=== PATIENT | male | born 2000 | race Caucasian/White ===

== ENCOUNTER 2024-08-30 22:14 | Emergency (ER) | payer OTHER, SELFPAY ==
--- OUTSIDE RECORDS SUMMARY | 2024-08-30 22:16 | XMS REPORT | Continuity of Care Document ---
Author Name Unknown Address [address] [place] [id number] Organization [facility] Address [address] [place] [address] [address] [place] [address] Care Team Providers Care Health Information Internship Name Role Phone Berny_Rolando Attending Clinician Unavailable Jose Arrieta Attending Clinician [phone] Monik Admitting Clinician Unavailable Payers Payer Name Policy Type Policy Number Effective Date Expirati on Date Source [employer] [id number] 2002 00:00:00 Problems Condition Name Condition Details Condition Category Status Onset Date Resolution Date Last Treatment Date Treating Clinician Comments Source Genital warts Genital Warts Problem Active 8-18 00:00: 00 [facility] Chlamydial urethritis Chlamydial Urethritis Problem Active 8-18 00:00: 00 [facility] Sexually transmitte d infectious disease Sexually Transmitte d Infectious Disease Problem Active 8-18 00:00: 00 [facility] Body mass index 25-29 - overweight Body Mass Index 25-29 - Overweight Problem Active 8-18 00:00: 00 [facility] Social History Smoking Status Start Date Stop Date Source Never Smoker [facility] Medications Ordered Medication Name Filled Medication Name Start Date Stop Date Current Medication? Ordering Clinician Indication Dosage Frequency Signature (SIG) Comments Components Source podofilox 0.5 % topical solution APPLY BY TOPICAL ROUTE 2 TIMES PER DAY FOR 3 DAYS THEN STOP FOR 4 DAYS. (REPEAT 7DAY CYCLE UNTIL NO VISIBLE WART TISSUE/MAX OF FOUR CYCLES) podofilox 0.5 % topical solution APPLY BY TOPICAL ROUTE 2 TIMES PER DAY FOR 3 DAYS THEN STOP FOR 4 DAYS. (REPEAT 7DAY CYCLE UNTIL NO VISIBLE WART TISSUE/MAX OF FOUR CYCLES) No podofilox 0.5 % topical solution APPLY BY TOPICAL ROUTE 2 TIMES PER DAY FOR 3 DAYS THEN STOP FOR 4 DAYS. (REPEAT 7DAY CYCLE UNTIL NO VISIBLE WART TISSUE/MAX OF FOUR CYCLES) [facility] Vital Signs Vital Name Observation Time Observation Value Comments Rolando pantoja Body Weight 2024-07-31 00:00:00 200 [lb_av] [facility] BMI (Body Mass Index) 2024-07-31 00:00:00 25.7 kg/m2 [facility] Height 2024-07-31 00:00:00 74 [in_i] [facility] Height 2024-07-17 00:00:00 74 [in_i] [facility] BMI (Body Mass Index) 2024-07-17 00:00:00 25.7 kg/m2 [facility] Body Weight 2024-07-17 00:00:00 200 [lb_av] [facility] BP Systolic 2024-07-17 00:00:00 141 mm[Hg] [facility] BP Diastolic 2024-07-17 00:00:00 93 mm[Hg] [facility] BP Diastolic 2022-01-27 00:00:00 84 mm[Hg] [facility] Height 2022-01-27 00:00:00 74 [in_i] [facility] BMI (Body Mass Index) 2022-01-27 00:00:00 26.1 kg/m2 [facility] BP Systolic 2022-01-27 00:00:00 133 mm[Hg] [facility] Body Weight 2022-01-27 00:00:00 203.3 [lb_av] [facility] BP Diastolic 2021-12-29 00:00:00 89 mm[Hg] [facility] Height 2021-12-29 00:00:00 74 [in_i] [facility] BMI (Body Mass Index) 2021-12-29 00:00:00 26.1 kg/m2 [facility] BP Systolic 2021-12-29 00:00:00 124 mm[Hg] [facility] Body Weight 2021-12-29 00:00:00 203 [lb_av] [facility] Encounters Start Date/Time End Date/Time Encounter Type Admission Type Attending [facility] Care Department Encounter ID Source 2024-07-31 00:00:00 2024-07-31 00:00:00 Jaswant Gottlieb, FISCAL ACCOUNTING CLERK: [address] [address], [place] [address] , Ph. [facility] - [phone] [id number] [facility] 2024-07-17 00:00:00 2024-07-17 00:00:00 Jaswant Gottlieb, FISCAL ACCOUNTING CLERK: [address] [address], [place] [address] , Ph. [facility] - [phone] [id number] [facility] 2022-01-30 00:00:00 2022-01-30 00:00:00 Outpatient Mehta_S [facility] [id number] [facility] 2022-01-27 00:00:00 2022-01-27 00:00:00 [place] [facility] [place] [id number] [facility] 2022-01-27 00:00:00 2022-01-27 00:00:00 Outpatient Jose Arrieta [facility] [id number] 2022-01-27 00:00:00 2022-01-27 00:00:00 Jose Arrieta MD: [address] [address], [place] [address] , Ph. [facility] - [phone] [id number] [facility] 2022-01-21 00:00:00 2022-01-21 00:00:00 Outpatient Mehta_S [facility] [id number] [facility] 2022-01-02 00:00:00 2022-01-02 00:00:00 Outpatient Mehta_S [facility] [id number] [facility] 2021-12-30 00:00:00 2021-12-30 00:00:00 Outpatient Mehta_S [facility] [id number] [facility] 2021-12-29 00:00:00 2021-12-29 00:00:00 Outpatient Mehta_S [facility] [id number] [facility] 2021-12-29 00:00:00 2021-12-29 00:00:00 Outpatient Jose Arrieta [facility] [id number] 2021-12-29 00:00:00 2021-12-29 00:00:00 Jose Arrieta MD: [address] [address], [place] [address] , [id number] [facility] 2021-12-28 00:00:00 2021-12-28 00:00:00 Outpatient Mehta_S [facility] [id number] [facility] 2021-12-26 00:00:00 2021-12-26 00:00:00 Outpatient Mehta_S [facility] [id number] [facility] Results Test Description Test Time Test Comments Results Result Co mments Source [facility]lamydia [facility]achomatis+Neisseria gonorrhoeae rRNA [Presence] in Urine by [id number] 00:00:00* Test Item Value Reference Range Interpretation Comme nts Chlamydia trachomatis rRNA [Presence] in Urine by MAYRA with probe detection (test code = 45202-1) NOT DETECTED not detected Neisseria gonorrhoeae rRNA [Presence] in Urine by MAYRA with probe detection (test code = 24924-2) NOT DETECTED not detected [facility] 2000 panel - [id number] 00:00:00* Test Item Value Reference Range Interpretation Comme nts Hepatitis A virus IgM Ab [Units/volume] in Serum by Radioimmunoassay (DON) (test code = 5182-1) NON-REACTIVE non-reactive Hepatitis B virus core IgM A b [Presence] in Serum or Plasma by Immunoassay (test code = 09650-7) NON-REACTIVE non-reactive Hepatitis B virus surface Ag [Presence] in Serum (test code = 5195-3) NON-REACTIVE non-reactive Hepatitis C virus Ab [Presen ce] in Serum or Plasma by Immunoassay (test code = 60915-5) NON-REACTIVE non-reactive [facility] Ab, [id number] 00:00:00* Test Item Value Reference Range Interpretation Comme nts HIV 1 p24 Ag [Presence] in S laura or Plasma by Immunoassay (test code = 06855-6) NON-REACTIVE non-reactive HIV 1+2 Ab [Presence] in Ser um or Plasma by Immunoassay (test code = 88840-3) NON-REACTIVE non-reactive HIV 1+2 Ab+HIV1 p24 Ag [Presence] in Serum or Plasma by Immunoassay (test code = 20981-5) NON-REACTIVE non-reactive [facility] macro (dipstick) panel - [id number] 16:04:00* Test Item Value Reference Range Interpretation Comme nts leukocytes (test code = leukocytes) negative neg urobilinogen (test code = urobilinogen) 0.2 E.U./dL sm amt (.5-1mg/dL) protein (test code = protein) negative See_Comment [Automated [employer] ge] The system which generated this result transmitted reference range: <=150 mg/d. The reference range was not used to interpret this result as normal/abnormal. pH (test code = pH) 7.0 4.5-8 blood (test code = blood) negative See_Comment [Automated [employer] ge] The system which generated this result transmitted reference range: <=3 RBC. The reference range was not used to interpret this result as normal/abnormal. specific gravity (test code = specific gravity) 1.015 1.005-1.025 ketone (test code = ketone) negative none bilirubin (test code = bilirubin) negative neg glucose (test code = glucose) negative See_Comment [Automated [employer] ge] The system which generated this result transmitted reference range: <=130 mg/d. The reference range was not used to interpret this result as normal/abnormal. color (test code = color) not entered yellow clarity (test code = clarity) not entered clear or cloudy nitrite (test code = nitrite) negative neg [facility]
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
--- NOTE | 2024-08-31 00:01 | RAD REPORT ---
EXAM: CT Maxillofacial Without Intravenous Contrast CLINICAL HISTORY: The patient is 24 years old and is Male; left facial contusion TECHNIQUE: Axial computed tomography images of the face without intravenous contrast. Sagittal and coronal r eformatted images were created and reviewed. This CT exam was performed using one or more of the following dose reduction techniques: automated exposure control, adjustment of the mA and/or kV acc ording to patient size, and/or use of iterative reconstruction technique. COMPARISON: No relevant prior studies available. FINDINGS: BONES/JOINTS: The orbital floors and schneider are intact. The zygomatic arches and pterygoid plate s are intact. The maxilla and mandible are intact. There is no acute fracture. SOFT TISSUES: Unremarkable. ORBITS: The globes, extraocular muscles, and optic nerve complexes are within normal limits. SINUSES: Mucoperiosteal thickening of the maxillary sinuses is present. The remaining visualized paranasal sinuses are clear. No air-fluid levels. NASAL CAVITY/SEPTUM: The nasal bones are intact. IMPRESSION: No acute facial fracture. Electronically signed by: Silvia Silva MD 08/30/2024 11:26 PM CDT Due to temporary technical issues with the PACS/[place] reporting system, reports are being briana d by the in-house radiologist without review as a courtesy to ensure prompt reporting the interpreting radiologist is fully responsible for the content of the report. Transcribed Date/Time: 08/31/2024 12:00 AM
[2024-08-31] MEDS ORDERED: TDAP (DIPHTH,PERTUSS(ACELL),TET VAC) 0.5 ML VIAL IMVAC ONE (00:26)
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
[2024-08-31 00:58] VITALS: TEMP 98.7
[2024-08-31 01:01] VITALS: BP 116/64; O2SAT 98
--- NOTE | 2024-08-31 05:46 | RAD REPORT ---
EXAM DESCRIPTION: Shoulder Left 2+ Views , Elbow Left 3 View , Pelvis 1-2 views CLINICAL HISTORY: 24 years Male, pain TECHNIQUE: Single AP view the pelvis, 3 views of the left elbow, and 2 views of the left shoulder wer e obtained. COMPARISON: None available FINDINGS: Pelvis: No acute fracture, dislocation, focal osseous lesion, or radiopaque foreign body. Moderate to large amount of retained colonic stool. Left elbow: No fracture, dislocation, focal osseous lesion, radiopaque foreign body, or joint effusio n. Left shoulder: No fracture, dislocation, focal osseous lesion, or radiopaque foreign body. Acromioclavicular and glenohumeral joints are intact. Visualized pulmonary parenchyma is clear. Cardiac silhouette is normal in size. IMPRESSION: 1. No acute fracture or dislocation. Electronically signed by: Damián Anderson MD 08/30/2024 11:33 PM CDT RP Due to temporary technical issues with the PACS/[employer] reporting system, reports are being briana d by the in-house radiologist without review as a courtesy to ensure prompt reporting the interpreting radiologist is fully responsible for the content of the report. Transcribed Date/Time: 08/31/2024 5:47 AM
--- NOTE | 2024-08-31 05:47 | RAD REPORT ---
EXAM DESCRIPTION: Shoulder Left 2+ Views , Elbow Left 3 View , Pelvis 1-2 views CLINICAL HISTORY: 24 years Male, pain TECHNIQUE: Single AP view the pelvis, 3 views of the left elbow, and 2 views of the left shoulder wer e obtained. COMPARISON: None available FINDINGS: Pelvis: No acute fracture, dislocation, focal osseous lesion, or radiopaque foreign body. Moderate to large amount of retained colonic stool. Left elbow: No fracture, dislocation, focal osseous lesion, radiopaque foreign body, or joint effusio n. Left shoulder: No fracture, dislocation, focal osseous lesion, or radiopaque foreign body. Acromioclavicular and glenohumeral joints are intact. Visualized pulmonary parenchyma is clear. Cardiac silhouette is normal in size. IMPRESSION: 1. No acute fracture or dislocation. Electronically signed by: Damián Anderson MD 08/30/2024 11:33 PM CDT RP Due to temporary technical issues with the PACS/[employer] reporting system, reports are being briana d by the in-house radiologist without review as a courtesy to ensure prompt reporting the interpreting radiologist is fully responsible for the content of the report. Transcribed Date/Time: 08/31/2024 5:46 AM
--- NOTE | 2024-08-31 05:48 | RAD REPORT ---
EXAM DESCRIPTION: Shoulder Left 2+ Views , Elbow Left 3 View , Pelvis 1-2 views CLINICAL HISTORY: 24 years Male, pain TECHNIQUE: Single AP view the pelvis, 3 views of the left elbow, and 2 views of the left shoulder wer e obtained. COMPARISON: None available FINDINGS: Pelvis: No acute fracture, dislocation, focal osseous lesion, or radiopaque foreign body. Moderate to large amount of retained colonic stool. Left elbow: No fracture, dislocation, focal osseous lesion, radiopaque foreign body, or joint effusio n. Left shoulder: No fracture, dislocation, focal osseous lesion, or radiopaque foreign body. Acromioclavicular and glenohumeral joints are intact. Visualized pulmonary parenchyma is clear. Cardiac silhouette is normal in size. IMPRESSION: 1. No acute fracture or dislocation. Electronically signed by: Damián Anderson MD 08/30/2024 11:33 PM CDT RP Due to temporary technical issues with the PACS/[employer] reporting system, reports are being briana d by the in-house radiologist without review as a courtesy to ensure prompt reporting the interpreting radiologist is fully responsible for the content of the report. Transcribed Date/Time: 08/31/2024 5:47 AM
== END 2024-08-31 00:36 | disposition home or self-care (01) ==
LOC: ER 22:14
DX: S00.83XA Contusion of other part of head, initial encounter (principal); S40.012A Contusion of left shoulder, initial encounter; S50.02XA Contusion of left elbow, initial encounter; S70.02XA Contusion of left hip, initial encounter; S30.0XXA Contusion of lower back and pelvis, initial encounter; V86.95XA Unspecified occupant of 3- or 4- wheeled all-terrain vehicle (ATV) injured in nontraffic accident, initial encounter
CPT/HCPCS: 70450; 70486; 72125; 72170; 76377; 90715; 96372; 99284

== ENCOUNTER 2025-02-22 21:20 | Emergency (ER) | payer OTHER ==
--- OUTSIDE RECORDS SUMMARY | 2025-02-22 21:24 | XMS REPORT | Continuity of Care Document ---
Author Name Unknown Address [address] [address] [place] [address] [address] [facility] Address [address] [facility] [address] [place] [address] Care Team Providers Care School Psychometrist Name Role Phone NO PHYSICIAN, . Primary Care Physician Unavailab ZACKARY Jack Attending Clinician Unavailable MeJaeneth Attending Clinician Unavailable Jose Arrieta Attending Clinician [phone] Monik Admitting Clinician Unavailable Payers Payer Name Policy Type Policy Number Effective Date Expirati on Date Source [employer] [id number] 2002 00:00:00 Problems Condition Name Condition Details Condition Category Status Onset Date Resolution Date Last Treatment Date Treating Clinician Comments Source Genital warts Genital Warts Problem Active 12-29 00:00: 00 [facility] Chlamydial urethritis Chlamydial Urethritis Problem Active 12-29 00:00: 00 [facility] Sexually transmitte d infectious disease Sexually Transmitte d Infectious Disease Problem Active 12-29 00:00: 00 [facility] Body mass index 25-29 - overweight Body Mass Index 25-29 - Overweight Problem Active 12-29 00:00: 00 [facility] Social History Smoking Status Start Date Stop Date Source Never Smoker [facility] Medications Ordered Medication Name Filled Medication Name Start Date Stop Date Current Medication? Ordering Clinician Indication Dosage Frequency Signature (SIG) Comments Components Source podofilox 0.5 % topical solution APPLY TOPICALLY TO THE AFFECTED AREA TWICE DAILY FOR 3 DAYS THEN STOP FOR 4 DAYS. REPEAT 7 DAY CYCLE UNTIL NO VISIBLE WART TISSUE /. MAX OF 4 CYCLES podofilox 0.5 % topical solution APPLY TOPICALLY TO THE AFFECTED AREA TWICE DAILY FOR 3 DAYS THEN STOP FOR 4 DAYS. REPEAT 7 DAY CYCLE UNTIL NO VISIBLE WART TISSUE /. MAX OF 4 CYCLES No podofilox 0.5 % topical solution APPLY TOPICALLY TO THE AFFECTED AREA TWICE DAILY FOR 3 DAYS THEN STOP FOR 4 DAYS. REPEAT 7 DAY CYCLE UNTIL NO VISIBLE WART TISSUE /. MAX OF 4 CYCLES [facility] Vital Signs Vital Name Observation Time Observation Value Comments S simran Height 2025-02-22 09:20:00 187.800897 cm [facility] Weight 2025-02-22 09:20:00 92.094014 [facility] BMI (Body Mass Index) 2025-02-22 09:20:00 26.3 kg/m2 [facility] Height 2024-11-03 00:00:00 74 [in_i] [place] [facility] BP Systolic 2024-11-03 00:00:00 142 mm[Hg] [facility] Weight 2024-11-03 00:00:00 200 [lb_av] [facility] Diastolic 2024-11-03 00:00:00 85 mm[Hg] [facility] BMI (Body Mass Index) 2024-11-03 00:00:00 25.7 kg/m2 [facility] Body Weight 2024-07-31 00:00:00 200 [lb_av] [facility] BMI (Body Mass Index) 2024-07-31 00:00:00 25.7 kg/m2 [facility] Height 2024-07-31 00:00:00 74 [in_i] [place] [facility] Body Weight 2024-07-17 00:00:00 200 [lb_av] [facility] BP Systolic 2024-07-17 00:00:00 141 mm[Hg] [place] BP Diastolic 2024-07-17 00:00:00 93 mm[Hg] [facility] Height 2024-07-17 00:00:00 74 [in_i] [facility] BMI (Body Mass Index) 2024-07-17 00:00:00 25.7 kg/m2 [facility] BP Diastolic 2022-01-27 00:00:00 84 mm[Hg] [facility] Height 2022-01-27 00:00:00 74 [in_i] [place] [facility] BMI (Body Mass Index) 2022-01-27 00:00:00 26.1 kg/m2 [facility] BP Systolic 2022-01-27 00:00:00 133 mm[Hg] [place] [place] [facility] Body Weight 2022-01-27 00:00:00 203.3 [lb_av] [place] [facility] BP Diastolic 2021-12-29 00:00:00 89 mm[Hg] [facility] Height 2021-12-29 00:00:00 74 [in_i] [place] [facility] BMI (Body Mass Index) 2021-12-29 00:00:00 26.1 kg/m2 [facility] BP Systolic 2021-12-29 00:00:00 124 mm[Hg] [place] Body Weight 2021-12-29 00:00:00 203 [lb_av] [facility] Encounters Start Date/Time End Date/Time Encounter Type Admission Type Attending Clinicians Care Facility Care Department Encounter ID Source 2025-02-22 07:45:00 2025-02-22 10:05:00 Emergency ER [facility] [id number] [facility] 2025-02-22 07:45:00 2025-02-22 10:05:00 Departed Emergency Room [facility] [id number] 51 [facility] 2024-11-03 00:00:00 2024-11-03 00:00:00 Jaswant Gottlieb, [employer] MACHINE ADJUSTER: [address], [place] [address] , Ph. [facility] - 510 [phone] [id number] [facility] 2024-07-31 00:00:00 2024-07-31 00:00:00 Jaswant Gottlieb, [employer] ASSEMBL[employer] MACHINE ADJUSTER: [address], [place] [address] , Ph. [facility] - 510 [phone] [id number] [facility] 2024-07-17 00:00:00 2024-07-17 00:00:00 Jaswant Gottlibe, [employer] ASSEMBL[employer] MACHINE ADJUSTER: [address], [place] [address] , Ph. [facility] - 510 [phone] [id number] [facility] 2022-01-27 00:00:00 2022-01-27 00:00:00 Outpatient Jose Arrieta [facility] [id number] 2022-01-27 00:00:00 2022-01-27 00:00:00 Jose Arrieta MD: [address] [facility], [place] [address] , Ph. [facility] - 510 [id number] [facility] 2021-12-29 00:00:00 2021-12-29 00:00:00 Outpatient Jose Arrieta [facility] [id number] 2021-12-29 00:00:00 2021-12-29 00:00:00 Jsoe Arrieta MD: [address] [facility] [address], [place] [address] , Ph. [facility] - [phone] [id number] [facility] Results Test Description Test Time Test Comments Results Result Co mments Source [facility]tr[facility]V (mean corpuscular volume) determination 2025-02-22 09:37:00* Test Item Value Reference Range Interpretation Comme [facility] Mean Corpuscular Volume (ashvin t code = 77402-6) 89.5 [facility] CtrMean corpuscular hemoglobin (MCH) determination 2025-02-22 09:37:00* Test Item Value Reference Range Interpretation Comme [facility] Mean Corpuscular Hemoglobin (test code = 49256986) 29.6 [facility]trMean corpuscular hemoglobin concentration (MCHC) ibiqaigallvlc9572-11-77 09:37:00* Test Item Value Reference Range Interpretation Comme [facility] Mean Corpuscular Hemoglobin Concent (test code = 02979350) 33.0 [facility] CtrRBC distribution width coefficient of variation 2025-02-22 09:37:00* Test Item Value Reference Range Interpretation Comme [facility] Red Cell Distribution Width (test code = 88901894) 12.9 [facility] CtrPlatelet [id number] 09:37:00* Test Item Value Reference Range Interpretation Comme [facility] Platelet Count (test code = 47662399) 228 [facility] CtrMean platelet [id number] 09:37:00* Test Item Value Reference Range Interpretation Comme [facility] Mean Platelet Volume (test c ode = 86676269) 10.5 [facility] CtrNeutrophils seg % [id number] 09:37:00* Test Item Value Reference Range Interpretation Comme nts Neutrophils (%) (Auto) (test code = 74303-5) 64.3 [facility] CtrAbsolute immature granulocyte [id number] 09:37:00* Test Item Value Reference Range Interpretation Comme nts Absolute Immature Granulocyt e (auto (test code = 52082-3) 0.01 [facility] CtrBasophil % xoegzd4890-11-97 09:37:00* Test Item Value Reference Range Interpretation Comme nts Basophils (%) (Auto) (test c ode = 65142-8) 0.4 [facility] CtrBlood band neutrophils count (number/volume) 2025-02-22 09:37:00* Test Item Value Reference Range Interpretation Comme nts Neutrophils # (Auto) (test c ode = 76380-3) 3.20 [facility] CtrAbsolute lymphocyte [id number] 09:37:00* Test Item Value Reference Range Interpretation Comme nts Lymphocytes # (Auto) (test c ode = 40275-8) 1.21 [facility] CtrAbsolute basophil shyuz9672-83-03 09:37:00* Test Item Value Reference Range Interpretation Comme nts Basophils # (Auto) (test cod e = 60939437) 0.02 [facility] CtrAbsolute NRBC ybrsr4681-16-74 09:37:00* Test Item Value Reference Range Interpretation Comme nts Nucleated Red Blood Cells # (test code = 633507434) 0 [facility] CtrAbsolute eosinophil [id number] 09:37:00* Test Item Value Reference Range Interpretation Comme nts Eosinophils # (Auto) (test c ode = QQT4548) 0.09 [facility] CtrRBC ostrw0514-46-07 09:37:00* Test Item Value Reference Range Interpretation Comme nts Red Blood Count (test code = 15138706) 4.77 [facility] XwmLsmhhgbqfq2204-68-19 09:37:00* Test Item Value Reference Range Interpretation Comme nts Hematocrit (test code = 85453499) 42.7 [facility] CtrALT (SGPT)2025-02-22 09:36:00* Test Item Value Reference Range Interpretation Comme nts Alanine Aminotransferase (AL T/SGPT) (test code = 04288073) 25 [facility] CtrCreatine kinase total ser/bnln2920-09-84 09:36:00 * Test Item Value Reference Range Interpretation Comme nts Creatine Kinase (test code = 2157-6) 450 [facility] SxqLcujffyqu1929-89-58 09:35:00* Test Item Value Reference Range Interpretation Comme nts Magnesium Level (test code = 16606663) 2.20 [facility] CtrAST (SGOT) ser/bwqb3844-49-34 09:35:00* Test Item Value Reference Range Interpretation Comme nts Aspartate Amino Transf (AST/ SGOT) (test code = 37626319) 26 [facility] CtrOsmolality ppl5210-15-58 09:34:00* Test Item Value Reference Range Interpretation Comme nts Blood Urea Nitrogen (test co de = 469540212) 15 Serum Osmolality (test code = JZS1402) 286 [facility] CtrCreatinine aiqfjdqnyam1193-64-21 09:34:00* Test Item Value Reference Range Interpretation Comme nts Creatinine (test code = YYB9458) 0.87 [facility] CtrEstimated glomerular filtration rate (GFR) tawxyieedphix7796-69-98 09:34:00* Test Item Value Reference Range Interpretation Comme [facility] Glomerular Filtration Rate C alc (test code = 524926088) > 60.00 [facility] CtrBUN/creatinine ewdvd4671-13-10 09:34:00* Test Item Value Reference Range Interpretation Comme nts BUN/Creatinine Ratio (test c ode = 08885983) 17.2 [facility] CtrAlkaline phosphatase etgrr6785-83-08 09:33:00* Test Item Value Reference Range Interpretation Comme nts Total Alkaline Phosphatase ( test code = 35299811) 62 [facility] UvfKR12579-98-10 09:31:00* Test Item Value Reference Range Interpretation Comme nts Carbon Dioxide Level (test c ode = 81647826) 26 [facility] CtrAnion gap fxbkfkdwyqrgp8250-89-67 09:31:00* Test Item Value Reference Range Interpretation Comme nts Anion Gap (test code = 62777978) 12.2 [facility] CtrTotal ivhtiod4504-15-30 09:30:00* Test Item Value Reference Range Interpretation Comme nts Total Protein (test code = MBX9511) 7.1 [facility] CtrGlobulin szs0831-87-43 09:30:00* Test Item Value Reference Range Interpretation Comme nts Globulin (test code = 011713240) 2.4 [facility] CtrAlbumin-globulin ratio oae8263-53-88 09:30:00* Test Item Value Reference Range Interpretation Comme nts Albumin/Globulin Ratio (test code = KUN8947) 2.0 [facility] CtrCalcium rpoxt0035-49-66 09:29:00* Test Item Value Reference Range Interpretation Comme nts Calcium Level (test code = 87128098) 9.2 [facility] CtrAlbumin ser/yrbt8315-24-93 09:29:00* Test Item Value Reference Range Interpretation Comme nts Albumin (test code = 102306598) 4.7 [facility] CtrSodium ysyxl0213-63-66 09:28:00* Test Item Value Reference Range Interpretation Comme nts Sodium Level (test code = ZHA9297) 143 [facility] CtrChloride qlb9532-86-19 09:28:00* Test Item Value Reference Range Interpretation Comme nts Chloride Level (test code = ZFS6522) 109 [facility] CtrReagin Ab [Presence] in Serum by [id number] 00:00:00* Test Item Value Reference Range Interpretation Comme nts Reagin Ab [Titer] in Serum ( test code = 80948-5) NON-REACTIVE non-reactive [facility] UrologyChlamydia trachomatis+Neisseria gonorrhoeae rRNA [Presence] in Urine by Uvbff2471-48-34 00:00:00* Test Item Value Reference Range Interpretation Comme nts Chlamydia trachomatis rRNA [Presence] in Urine by MAYRA with probe detection (test code = 30477-4) NOT DETECTED not detected Neisseria gonorrhoeae rRNA [Presence] in Urine by MAYRA with probe detection (test code = 17733-6) NOT DETECTED not detected [facility]rologyAcute hepatitis 2000 panel - Ctakk7618-02-73 00:00:00* Test Item Value Reference Range Interpretation Comme nts Hepatitis A virus IgM Ab [Units/volume] in Serum by Radioimmunoassay (DON) (test code = 5182-1) NON-REACTIVE non-reactive Hepatitis B virus core IgM A b [Presence] in Serum or Plasma by Immunoassay (test code = 92979-7) NON-REACTIVE non-reactive Hepatitis B virus surface Ag [Presence] in Serum (test code = 5195-3) NON-REACTIVE non-reactive Hepatitis C virus Ab [Presen ce] in Serum or Plasma by Immunoassay (test code = 68030-3) NON-REACTIVE non-reactive [facility] UrologyHIV-1 Ab, [id number] 00:00:00* Test Item Value Reference Range Interpretation Comme nts HIV 1 p24 Ag [Presence] in S laura or Plasma by Immunoassay (test code = 07566-0) NON-REACTIVE non-reactive HIV 1+2 Ab [Presence] in Ser um or Plasma by Immunoassay (test code = 93947-3) NON-REACTIVE non-reactive HIV 1+2 Ab+HIV1 p24 Ag [Presence] in Serum or Plasma by Immunoassay (test code = 69794-7) NON-REACTIVE non-reactive [facility] UrologyUrinalysis macro (dipstick) panel - [id number] 16:04:00* Test Item Value Reference Range Interpretation Comme nts leukocytes (test code = leukocytes) negative neg urobilinogen (test code = urobilinogen) 0.2 E.U./dL sm amt (.5-1mg/dL) protein (test code = protein) negative See_Comment [Automated messa ge] The system which generated this result transmitted reference range: <=150 mg/d. The reference range was not used to interpret this result as normal/abnormal. pH (test code = pH) 7.0 4.5-8 blood (test code = blood) negative See_Comment [Automated messa ge] The system which generated this result transmitted reference range: <=3 RBC. The reference range was not used to interpret this result as normal/abnormal. specific gravity (test code = specific gravity) 1.015 1.005-1.025 ketone (test code = ketone) negative none bilirubin (test code = bilirubin) negative neg glucose (test code = glucose) negative See_Comment [Automated messa ge] The system which generated this result transmitted reference range: <=130 mg/d. The reference range was not used to interpret this result as normal/abnormal. color (test code = color) not entered yellow clarity (test code = clarity) not entered clear or cloudy nitrite (test code = nitrite) negative neg [facility] Notes <thead> Date/Time Note Provider Source [facility] [id number] 10:09:06 [facility] [id number] 10:09:06 You came to the ED today com plaining of paresthesias in the upper and lower extremity. While in the emergency department you had a normal neurologic physical exam and able to ambulate in the ED with no difficulty or abnormal gait. CBC showed no signs of serious infection. Electrolytes came back within normal limits. Blood sugar was unremarkable for serious abnormality. Please follow-up with your primary care doctor for further care and evaluation. Return to the ED if your symptoms worsen or you have any other concerns. Thank you. Future Tests Future scheduled test information is unavailable Pending Tests Pending diagnostic test information is unavailable Future Visits Future appointment information is unavailable Referrals to Other Providers <thead> Reason for Referral Referral Start Date Provider Provider Contact Information Provider Address NO PHYSICIAN Future Procedures Future procedure information is unavailable Future Medications Future medication information is unavailable Patient Instructions <tbody> Paresthesia, Ashm-zk-Ghpp [facility]
[2025-02-22 22:05] LABS: Absolute Lymphocytes (CBC) 2.5 K/uL (0.7-4.9); Hematocrit 42.4 % (39.6-49.0); Hemoglobin 14.1 g/dL (13.6-17.9); MCH 29.6 pg (27.0-35.0); MCHC 33.3 g/dL (32.0-36.0); MCV 89.0 fL (80-100); MPV 9.2 fL (7.6-11.3); Nucleated RBC Absolute Count 0.0 (0-0); Nucleated Red Blood Cells % 0.0 % (0-0); RBC Red Blood Cell Count 4.76 M/uL (4.33-5.43); White Blood Count 7.20 thou/uL (4.3-10.9)
[2025-02-22 22:24] LABS: ALT/SGPT 32.0 U/L (16-61); AST/SGOT 16.0 U/L (15-37); Albumin 3.8 g/dL (3.4-5.0); Albumin/Globulin Ratio 1.4 (1.1-1.8); Alkaline Phosphatase 63.0 U/L (45-117); Anion Gap 8.9 mEq/L (5.0-15.0); BUN Blood Urea Nitrogen 24.0 mg/dL (7-18); Globulin 2.8 g/dL (2.3-3.5); Glucose Level 113.0 mg/dL (74-106); Potassium 3.9 mEq/L (3.5-5.1)
--- NOTE | 2025-02-22 22:25 | RAD REPORT ---
EXAMINATION: TWO VIEW CHEST XR CLINICAL INDICATION: TECHNIQUE: 2 views of the chest was performed. COMPARISON: No prior exam. FINDINGS: The lungs are well inflated and clear. The heart is normal in size. No displaced fractures evident. IMPRESSION: No acute or significant abnormalities.
[2025-02-22] MEDS ORDERED: FOLIC ACID 5 MG/ML VIAL ONE (23:03)
[2025-02-22 23:35] LABS: METHAMPHETAM NEGATIVE (NEGATIVE); THC Cannibis NEGATIVE (NEGATIVE)
[2025-02-22 23:38] LABS: Sqamous Epithelial None Seen /HPF (None Seen); Urine Crystals Unidentified Few /HPF (None Seen)
[2025-02-22 23:40] LABS: Urine Culture Reflex Order NOT NEEDED; Urine Microscopic Reflex YN NO UMIC
--- NOTE | 2025-02-22 23:59 | ER ---
Nurse's Notes [facility] Name: Prashant Richmond Age: 25 yrs Sex: Male : 2000 Arrival Date: 02/22/2025 Time: 21:20 Bed 5 Private MD: Diagnosis: Bradycardia, unspecified;Tobacco abuse counseling;Tobacco use;Paresthesia of skin Presentation: 02/22 21:47 Chief complaint: Patient states: PT C/O NUMBNESS AND TINGLING TO HANDS, FEET AND FACE br2 INTERMITTENT SINCE YESTERDAY. PT DENIES DRUG USAGE BUT HAS BEEN TAKING AG1 SUPPLEMENT FOR 2 WEEKS. PT WENT TO [facility] IN [place] THIS MORNING. Coronavirus screen: Client denies travel out of the [place] in the last 14 days. Ebola Screen: Patient denies exposure to infectious person. Initial Sepsis Screen: Does the patient meet any 2 criteria? No. Patient's initial sepsis screen is negative. Does the patient have a suspected source of infection? No. Patient's initial sepsis screen is negative. Risk Assessment: Do you want to hurt yourself or someone else? Patient reports no desire to harm self or others. Onset of symptoms is unknown. 21:47 Method Of Arrival: Ambulatory br2 21:47 Acuity: JONAS 3 br2 Triage Assessment: 21:48 General: Appears in no apparent distress. comfortable, Behavior is calm, cooperative. br2 Pain: Denies pain. Historical: - Allergies: 21:48 No Known Allergies; br2 - PMHx: 21:48 None; br2 - PSHx: 21:48 None; br2 - Immunization history:: Adult Immunizations not up to date. - Infectious Disease History:: Denies. - Social history:: Smoking status: Reported history of juuling and/or vaping. Patient uses alcohol, occasionally. Patient/guardian denies using street drugs. Screenin:51 [facility] ED Fall Risk Assessment (Adult) History of falling in the last 3 months, bm8 including since admission No falls in past 3 months (0 pts) Confusion or Disorientation No (0 pts) Intoxicated or Sedated No (0 pts) Impaired Gait No (0 pts) Mobility Assist Device Used No (0 pt) Altered Elimination No (0 pt) Score/Fall Risk Level 0 - 2 = Low Risk Oriented to surroundings, Maintained a safe environment, Educated pt \T\ family on fall prevention, incl call for assistance when getting out of bed, Assessed \T\ reinforced patient's understanding of fall precautions, Hourly rounding (assess needs \T\ fall precautionary measures) done, Used ambulatory aids as needed (educated on \T\ assisted with), Used gait belt as appropriate. Abuse screen: Denies threats or abuse. Nutritional screening: No deficits noted. Tuberculosis screening: No symptoms or risk factors identified. Assessment: 21:51 Reassessment: Patient appears in no apparent distress at this time. No changes from bm8 previously documented assessment. Patient and/or family updated on plan of care and expected duration. Pain level reassessed. Patient is alert, oriented x 3, equal unlabored respirations, skin warm/dry/pink. Patient states symptoms have not improved. 23:00 Reassessment: Patient appears in no apparent distress at this time. No changes from vc1 previously documented assessment. Patient and/or family updated on plan of care and expected duration. Pain level reassessed. Patient is alert, oriented x 3, equal unlabored respirations, skin warm/dry/pink. 02/23 00:00 Reassessment: Patient appears in no apparent distress at this time. No changes from vc1 previously documented assessment. Patient and/or family updated on plan of care and expected duration. Pain level reassessed. Patient is alert, oriented x 3, equal unlabored respirations, skin warm/dry/pink. Vital Signs: 02/22 21:47 BP 137 / 88; Pulse 45; Resp 16; Temp 97.1; Pulse Ox 100% ; Weight 92.99 kg; Height 6 br2 ft. 2 in. ; Pain 0/10; 21:57 BP 137 / 88; Pulse 44; Resp 15; Temp 97.1; Pulse Ox 99% ; Pain 0/10; vc1 23:00 BP 114 / 69; Pulse 51; Resp 16; Pulse Ox 95% ; vc1 02/23 00:00 BP 120 / 77; Pulse 44; Resp 14; Pulse Ox 96% ; vc1 00:04 BP 121 / 75 Supine; Pulse 48; bm8 00:06 BP 125 / 79 Sitting; Pulse 45; bm8 00:08 BP 129 / 85 Standing; Pulse 45; bm8 02/22 21:47 Body Mass Index 26.32 (92.99 kg, 187.96 cm) br2 10 21:47 Pain Scale: Adult br2 21:57 Pain Scale: Adult vc1 [place] Coma Score: 02/22 21:51 Eye Response: spontaneous(4). Motor Response: obeys commands(6). Verbal Response: bm8 oriented(5). Total: 15. 22:56 Eye Response: spontaneous(4). Motor Response: obeys commands(6). Verbal Response: sam oriented(5). Total: 15. NIH Stroke Scale Scores: 22:56 NIHSS Score: 0 sam ED Course: 21:22 Patient arrived in ED. im 21:29 Geoffrey Brownlee MD is Attending Physician. sam 21:48 Triage completed. br2 21:48 Arm band placed on right wrist. br2 21:51 Carlo Manzo, RN is Primary Nurse. bm8 21:53 Patient has correct armband on for positive identification. Placed in gown. Bed in low bm8 position. Call light in reach. Side rails up X 1. Client placed on continuous cardiac and pulse oximetry monitoring. NIBP monitoring applied. court monitor on. Pulse ox on. NIBP on. Door closed. Noise minimized. Pillow given. Verbal reassurance given. Head of bed elevated. 21:53 No provider procedures requiring assistance completed. Patient maintains SpO2 bm8 saturation greater than 95% on room air. 21:54 EKG done, by ED staff, reviewed by Geoffrey Brownlee MD. oe 22:23 Chest Pa And Lat (2 Views) XRAY In Process Unspecified. EDMS 23:23 CT Head C Spine In Process Unspecified. EDMS 23:58 Yuriy Ling MD is Referral Physician. sam 23:58 Renetta Mcclain MD is Referral Physician. [facility] 02/23 00:11 Provided Education on: post er care. bm8 00:11 IV discontinued, intact, bleeding controlled, No redness/swelling at site. Pressure bm8 dressing applied. Administered Medications: 02/22 23:13 Drug: foLIC Acid IVPB 1 mg IVPB once Route: IVPB; Site: right antecubital; vc1 02/23 00:11 Follow up: Response: No adverse reaction; IV Status: Completed infusion bm8 Medication: 02/22 21:51 VIS not applicable for this client. bm8 Outcome: 23:58 Discharge ordered by . [facility] 02/23 00:27 Discharged to home ambulatory, with significant other, vc1 Condition: stable Condition: stable Discharge instructions given to patient, Instructed on discharge instructions, follow up and referral plans. medication usage, Demonstrated understanding of instructions, follow-up care, medications, Prescriptions given X 1, 00:35 Patient left the ED. bm8 NIH Stroke Scale - NIH Stroke Score Date: 02/22/2025 Time: 22:56 Total Score = 0 10. Dysarthria (speech clarity - read or repeat words) - 0(Normal) 11. Extinction and Inattention (visual/tactile/auditory/spatial/personal) - 0(No abnormality) 1a. Level of Consciousness (LOC) - 0(Alert) 1b. Level of Consciousness (LOC) (Month \T\ Age) - 0(Both) 1c. LOC Commands (Open \T\ Closes Eyes/Warehouse Sorter) - 0(Both) 2. Best Gaze (Lateral Gaze Paresis) - 0(Normal) 3. Visual Field Loss - 0(No visual loss) 4. Facial Palsy - 0(Normal) 5a. Left Arm: Motor (10-second hold) - 0(No drift) 5b. Right Arm: Motor (10-second hold) - 0(No drift) 6a. Left Leg: Motor (5-second hold - always test supine) - 0(No drift) 6b. Right Leg: Motor (5-second hold - always test supine) - 0(No drift) 7. Limb Ataxia (finger/nose \T\ heel/kwan - test with eyes open) - 0(Absent) 8. Sensory Loss (pinprick arms/legs/face) - 0(Normal) 9. Best Language: Aphasia (description/naming/reading) - 0(No aphasia) Initials: [facility] Signatures: Dispatcher [employer] EDMS Geoffrey Brownlee MD MD cha Espinosa, [place] oe Calcote, Vanessa RN RN vc1 Linh Posada Brad RN RN bm8 Zuly Stoll RN RN br2 Corrections: (The following items were deleted from the chart) 02/22 21:51 21:47 Chief complaint: Patient states: PT C/O NUMBNESS AND TINGLING TO HANDS, br2 FEET AND FACE INTERMITTENT SINCE YESTERDAY. br2
--- NOTE | 2025-02-22 23:59 | EDPHYS ---
Physician Documentation [facility] Name: Prashant Richmond Age: 25 yrs Sex: Male : 2000 Arrival Date: 02/22/2025 Time: 21:20 Bed 5 Private MD: ED Physician Geoffrey Brownlee HPI: 02/22 22:52 This 25 yrs old Male presents to ER via Ambulatory with complaints of sam Numbness Of Hand - both, numbness of feet. 22:52 The patient or guardian reports numbness. The complaints affect the right hand and left sam hand. Historical: - Allergies: 21:48 No Known Allergies; br2 - PMHx: 21:48 None; br2 - PSHx: 21:48 None; br2 - Immunization history:: Adult Immunizations not up to date. - Infectious Disease History:: Denies. - Social history:: Smoking status: Reported history of juuling and/or vaping. Patient uses alcohol, occasionally. Patient/guardian denies using street drugs. ROS: 22:55 Constitutional: Negative for fever, chills, and weight loss, Eyes: Negative for injury, sam pain, redness, and discharge, ENT: Negative for injury, pain, and discharge, Neck: Negative for injury, pain, and swelling, Cardiovascular: Negative for chest pain, palpitations, and edema, Respiratory: Negative for shortness of breath, cough, wheezing, and pleuritic chest pain, Abdomen/GI: Negative for abdominal pain, nausea, vomiting, diarrhea, and constipation, Back: Negative for injury and pain, : Negative for injury, bleeding, discharge, and swelling, Skin: Negative for injury, rash, and discoloration, Psych: Negative for depression, anxiety, suicide ideation, homicidal ideation, and hallucinations, Allergy/Immunology: Negative for hives, rash, and allergies, Endocrine: Negative for neck swelling, polydipsia, polyuria, polyphagia, and marked weight changes, Hematologic/Lymphatic: Negative for swollen nodes, abnormal bleeding, and unusual bruising, 22:55 MS/extremity: Positive for paresthesias, of the right hand, left hand, right foot and left foot, Exam: 22:44 ECG was reviewed by the Attending Physician. sam 22:56 Constitutional: This is a well developed, well nourished patient who is awake, alert, sam and in no acute distress. Head/Face: Normocephalic, atraumatic. Eyes: Pupils equal round and reactive to light, extra-ocular motions intact. Lids and lashes normal. Conjunctiva and sclera are non-icteric and not injected. Cornea within normal limits. Periorbital areas with no swelling, redness, or edema. ENT: Nares patent. No nasal discharge, no septal abnormalities noted. Tympanic membranes are normal and external auditory canals are clear. Oropharynx with no redness, swelling, or masses, exudates, or evidence of obstruction, uvula midline. Mucous membranes moist. Neck: Trachea midline, no thyromegaly or masses palpated, and no cervical lymphadenopathy. Supple, full range of motion without nuchal rigidity, or vertebral point tenderness. No Meningismus. Chest/axilla: Normal chest wall appearance and motion. Nontender with no deformity. No lesions are appreciated. Cardiovascular: Regular rate and rhythm with a normal S1 and S2. No gallops, murmurs, or rubs. Normal PMI, no JVD. No pulse deficits. Respiratory: Lungs have equal breath sounds bilaterally, clear to auscultation and percussion. No rales, rhonchi or wheezes noted. No increased work of breathing, no retractions or nasal flaring. Abdomen/GI: Soft, non-tender, with normal bowel sounds. No distension or tympany. No guarding or rebound. No evidence of tenderness throughout. Back: No spinal tenderness. No costovertebral tenderness. Full range of motion. Male : Normal genitalia with no discharge or lesions. Skin: Warm, dry with normal turgor. Normal color with no rashes, no lesions, and no evidence of cellulitis. MS/ Extremity: Pulses equal, no cyanosis. Neurovascular intact. Full, normal range of motion., bilateral aka Neuro: Awake and alert, GCS 15, oriented to person, place, time, and situation. Cranial nerves II-XII grossly intact. Motor strength 5/5 in all extremities. Sensory grossly intact. Cerebellar exam normal. Normal gait. Psych: Awake, alert, with orientation to person, place and time. Behavior, mood, and affect are within normal limits. 22:56 Musculoskeletal/extremity: Circulation is intact in all extremities. Sensation intact. Compartment Syndrome exam of affected extremity: is normal. DVT Exam: No signs of deep vein thrombosis. no pain, no swelling, no tenderness, negative Homans' sign noted on exam, no appreciated bluish discoloration, no erythema, no increased warmth, Vital Signs: 21:47 BP 137 / 88; Pulse 45; Resp 16; Temp 97.1; Pulse Ox 100% ; Weight 92.99 kg; Height 6 br2 ft. 2 in. ; Pain 0/10; 21:57 BP 137 / 88; Pulse 44; Resp 15; Temp 97.1; Pulse Ox 99% ; Pain 0/10; vc1 23:00 BP 114 / 69; Pulse 51; Resp 16; Pulse Ox 95% ; vc1 02/23 00:00 BP 120 / 77; Pulse 44; Resp 14; Pulse Ox 96% ; vc1 00:04 BP 121 / 75 Supine; Pulse 48; bm8 00:06 BP 125 / 79 Sitting; Pulse 45; bm8 00:08 BP 129 / 85 Standing; Pulse 45; bm8 02/22 21:47 Body Mass Index 26.32 (92.99 kg, 187.96 cm) br2 02/22 21:47 Pain Scale: Adult br2 21:57 Pain Scale: Adult vc1 NIH Stroke Scale Scores: 02/22 22:56 NIHSS Score: 0 sam [place] Coma Score: 21:51 Eye Response: spontaneous(4). Motor Response: obeys commands(6). Verbal Response: bm8 oriented(5). Total: 15. 22:56 Eye Response: spontaneous(4). Motor Response: obeys commands(6). Verbal Response: sam oriented(5). Total: 15. MDM: 21:29 Medical Screening Exam initiated sam 22:58 Differential diagnosis: tendonitis. Differential Diagnosis altered mental status, sam sepsis, flu. Data reviewed: vital signs, nurses notes, lab test result(s), EKG, radiologic studies, CT scan, plain films. Consideration of Admission/Observation Escalation of care including admission/observation considered. I considered the following discharge prescriptions or medication management in the emergency department Medications were administered in the Emergency Department. See MAR. Test considered but Not performed: MRI: no mri brain. Historians other than the Patient: Spouse/Significant Other: sig other well informed. 02/22 21:35 Order name: CBC with Diff; Complete Time: 22:42 sam 02/22 21:35 Order name: CMP; Complete Time: 22:42 [facility] 02/22 21:35 Order name: UA Rfx Zan Cult if indicated; Complete Time: 23:42 [facility] 02/22 21:35 Order name: UDS; Complete Time: 23:42 [facility] 02/22 21:46 Order name: Chest Pa And Lat (2 Views) XRAY; Complete Time: 22:42 br2 02/22 22:52 Order name: CT Head C Spine [facility] 02/22 21:35 Order name: EKG - Nurse/Tech; Complete Time: 21:51 [facility] 02/22 23:48 Order name: Orthostatics; Complete Time: 00:09 [facility] EC:44 Rate is 46 beats/min. Rhythm is regular. QRS [place] is Normal. ME interval is normal. QRS asm interval is normal. QT interval is normal. No Q waves. T waves are Normal. No ST changes noted. Clinical impression: Sinus bradycardia and No evidence of ischemia. Interpreted by me. Reviewed by me. Administered Medications: 23:13 Drug: foLIC Acid IVPB 1 mg IVPB once Route: IVPB; Site: right antecubital; vc1 02/23 00:11 Follow up: Response: No adverse reaction; IV Status: Completed infusion bm8 Disposition Summary: 02/22/25 23:58 Discharge Ordered Notes: Location: Home sam Problem: new sam Symptoms: have improved sam Condition: Stable sam Diagnosis - Bradycardia, unspecified sam - Tobacco abuse counseling sam - Tobacco use sam - Paresthesia of skin sam Followup: sam - With: Private Physician - When: 2 - 3 days - Reason: Recheck today's complaints, Continuance of care, Re-evaluation by your physician Followup: sam - With: Yuriy Ling MD - When: 2 - 3 days - Reason: Recheck today's complaints, Re-evaluation by your physician Followup: sam - With: Renetta Mcclain MD - When: 2 - 3 days - Reason: Recheck today's complaints, Re-evaluation by your physician Discharge Instructions: - Discharge Summary Sheet sam - Paresthesia sam - Steps to Quit Smoking sam - Health Risks of Smoking sam - Peripheral Neuropathy sam - Steps to Quit Smoking, [id number] sam - Paresthesia, [id number] sam - Electronic Cigarette Information sam Forms: - Medication Reconciliation Form sam - Antibiotic Education sam - Prescription Opioid Use sam - Patient Portal Instructions sam - Leadership Thank You Letter [facility] Prescriptions: - Folic Acid 1 mg Oral Tablet - take 1 tablet ORAL route once daily; 30 tablet; Refills: 0, Product Selection sam Permitted NIH Stroke Scale - NIH Stroke Score Date: 02/22/2025 Time: 22:56 Total Score = 0 10. Dysarthria (speech clarity - read or repeat words) - 0(Normal) 11. Extinction and Inattention (visual/tactile/auditory/spatial/personal) - 0(No abnormality) 1a. Level of Consciousness (LOC) - 0(Alert) 1b. Level of Consciousness (LOC) (Month \T\ Age) - 0(Both) 1c. LOC Commands (Open \T\ Closes Eyes/Lock Corner Machine Operator) - 0(Both) 2. Best Gaze (Lateral Gaze Paresis) - 0(Normal) 3. Visual Field Loss - 0(No visual loss) 4. Facial Palsy - 0(Normal) 5a. Left Arm: Motor (10-second hold) - 0(No drift) 5b. Right Arm: Motor (10-second hold) - 0(No drift) 6a. Left Leg: Motor (5-second hold - always test supine) - 0(No drift) 6b. Right Leg: Motor (5-second hold - always test supine) - 0(No drift) 7. Limb Ataxia (finger/nose \T\ heel/kwan - test with eyes open) - 0(Absent) 8. Sensory Loss (pinprick arms/legs/face) - 0(Normal) 9. Best Language: Aphasia (description/naming/reading) - 0(No aphasia) Initials: [facility] Signatures: Dispatcher [employer] EDMS Geoffrey Brownlee MD MD cha Calcote, Vanessa RN RN vc1 Zuly Stoll RN RN br2 Carlo Manzo RN bm8 Corrections: (The following items were deleted from the chart) 02/22 21:36 21:35 CBC+H.LAB.BRZ ordered. EDMS EDMS 21:36 21:35 COMPREHENSIVE METABOLIC PANEL+C.LAB.BRZ ordered. EDMS EDMS 21:36 21:35 UA Rfx Zan Cult if indicated+U.LAB.BRZ ordered. EDMS EDMS 21:36 21:35 URINE DRUG SCREEN+UC.LAB.BRZ ordered. EDMS EDMS
--- NOTE | 2025-02-23 03:52 | RAD REPORT ---
EXAM: CT Head and Cervical Spine Without Intravenous Contrast CLINICAL HISTORY: DIZZINESS TECHNIQUE: Axial computed tomography images of the head/brain and cervical spine without intravenous contrast. Sagittal and coronal reformatted images were created and reviewed. This CT exam was performed using one or more of the following dose reduction techniques: automated exposure control, adjustmen t of the mA and/or kV according to patient size, and/or use of iterative reconstruction technique. COMPARISON: Correlation is made with report only from CT head and C-spine dated 08/30/2024 FINDINGS: Brain: Unremarkable. No hemorrhage. No significant white matter disease. No edema. Ventricles: Unremarkable. No ventriculomegaly. Skull: No acute fracture. Sinuses: Mild bilateral maxillary sinus mucosal thickening. Mastoid air cells: Unremarkable as visualized. No mastoid effusion. Vertebrae: Unremarkable. No acute fracture. Normal alignment. Discs/spinal canal/neural foramina: No acute findings. No spinal canal stenosis. Soft tissues: Unremarkable. IMPRESSION: 1. No acute intracranial or extra-axial abnormality. 2. No acute cervical spine injury. Electronically signed by: Guillermo Markham MD 02/23/2025 03:48 AM CDT Due to temporary technical issues with the PACS/[employer] reporting system, reports are being briana d by the in-house radiologist without review as a courtesy to ensure prompt reporting the interpreting radiologist is fully responsible for the content of the report. Transcribed Date/Time: 02/23/2025 3:52 AM
[2025-02-23 05:11] VITALS: TEMP 97.1
[2025-02-23 05:17] VITALS: O2SAT 96
[2025-02-23 05:21] VITALS: BP 129/85
== END 2025-02-23 00:35 | disposition home or self-care (01) ==
LOC: ER 21:20
DX: R00.1 Bradycardia, unspecified (principal); R20.2 Paresthesia of skin; Z72.0 Tobacco use; Z71.6 Tobacco abuse counseling
CPT/HCPCS: 36415; 70450; 71046; 72125; 80053; 80307; 81003; 85025; 93005; 96365; 99285